=== PATIENT | female | born 1955 | race Caucasian/White ===

== ENCOUNTER → 2018-01-01 | Outpatient (CLI) | payer OTHER ==
[2016-11-09 15:25] VITALS: BP 150/84
[~2018-01-01] MED LIST: ALBU18HF IH; ASPI-612 PO; ATOR20TA58 PO; AZIT250T6 PO; DULO60CA6 PO; FLUO20TA11 PO; FLUT1DIS IH; GUAI600T47 PO; HYDR-971 PO; LEVO750T31 PO; LEVO750T5 PO; MELA3TAB2 PO; OLME20TA17 PO; ONDA4TAB10 PO; PRED-220 PO; PRED50TA PO; TICA90TA PO
--- NOTE | 2018-01-01 17:04 | RAD ---
KUB, 01/01/2018: History: Cough, pain and swelling The abdominal gas pattern is unremarkable. There is no evidence of organomegaly. Scattered arterial calcifications are present. There are mild degenerative changes in the spine. IMPRESSION: 1. No acute abdominal abnormality is detected. 2. If abdominal wall pathology is clinically suspected, CT scanning may be considered for further evaluation.
== END | disposition home or self-care (01) ==
LOC: RAD 16:39
PROVIDERS: ATTEND General Practice
DX: R19.00 Intra-abdominal and pelvic swelling, mass and lump, unspecified site (principal); I11.9 Hypertensive heart disease without heart failure; E78.00 Pure hypercholesterolemia, unspecified; J44.9 Chronic obstructive pulmonary disease, unspecified
CPT/HCPCS: 74018

== ENCOUNTER → 2018-01-02 | Outpatient (CLI) | payer OTHER ==
[2016-11-09 15:25] VITALS: BP 150/84
[2018-01-02 12:37] LABS: BASO # 0.1 x10^3/uL (0.0-0.2); BASO % 1 % (0-3); EOS # 0.4 x10^3/uL (0.0-0.7); EOS % 5 % (0-3); HEMATOCRIT 43.2 % (36.0-47.0); HEMOGLOBIN 14.4 g/dL (12.0-15.5); LYMPH # 2.5 x10^3/uL (1.0-4.8); LYMPH % 29 % (24-48); MEAN CORPUSCULAR HEMOGLOBIN 32 pg (25-35); MEAN CORPUSCULAR HGB CONC 33 g/dL (31-37); MEAN CORPUSCULAR VOLUME 94 fL (79-100); MONO # 0.7 x10^3/uL (0.0-1.1); MONO % 8 % (0-9); NEUT % 57 % (31-73); PLATELET COUNT 259 x10^3/uL (140-400); RED BLOOD COUNT 4.57 x10^6/uL (3.50-5.40); RED CELL DISTRIBUTION WIDTH 13.2 % (11.5-14.5); WHITE BLOOD COUNT 8.7 x10^3/uL (4.0-11.0)
[2018-01-02 12:53] LABS: ALBUMIN 3.3 g/dL (3.4-5.0); ALBUMIN/GLOBULIN RATIO 0.8 (1.0-1.7); CALCIUM 8.5 mg/dL (8.5-10.1); CREATININE 0.6 mg/dL (0.6-1.0); POTASSIUM 3.7 mmol/L (3.5-5.1); TOTAL BILIRUBIN 0.7 mg/dL (0.2-1.0); TOTAL PROTEIN 7.2 g/dL (6.4-8.2)
== END | disposition home or self-care (01) ==
LOC: LAB 11:41
PROVIDERS: ATTEND General Practice
DX: R05 Cough (principal); R23.3 Spontaneous ecchymoses
CPT/HCPCS: 36415; 80053; 85025; 85610; 85730

== ENCOUNTER → 2018-04-16 | Outpatient (CLI) | payer OTHER ==
[2016-11-09 15:25] VITALS: BP 150/84
--- NOTE | 2018-04-16 13:41 | RAD ---
History: Intermittent distal lateral left lower leg mass. Symptoms for about 1.5 months. Comparison: None. Findings: Soft tissue ultrasound imaging was performed of the lateral left lower leg in area of interest. No solid or cystic masses are identified. Normal structures are visualized. Impression: No abnormality identified in the left lower leg in area of interest. Electronically signed by: Felix Saez MD (04/16/2018 1:37 PM) [facility]
== END | disposition home or self-care (01) ==
LOC: US 12:45
PROVIDERS: ATTEND General Practice
DX: R22.42 Localized swelling, mass and lump, left lower limb (principal); I11.9 Hypertensive heart disease without heart failure; E78.5 Hyperlipidemia, unspecified; J44.9 Chronic obstructive pulmonary disease, unspecified; E87.1 Hypo-osmolality and hyponatremia; I25.10 Atherosclerotic heart disease of native coronary artery without angina pectoris; Z95.818 Presence of other cardiac implants and grafts; Z68.23 Body mass index [BMI] 23.0-23.9, adult
CPT/HCPCS: 76881

== ENCOUNTER → 2018-11-27 | Outpatient (CLI) | payer OTHER ==
[2016-11-09 15:25] VITALS: BP 150/84
[~2018-11-27] MED LIST changes: -ALBU18HF IH; +ALBU2.5V8 IH; +HYDR-3165 PO; -HYDR-971 PO; +REGADENOSON 0.4 MG/5 ML DISP.SYRIN. IV ONE
--- NOTE | 2018-11-27 11:30 | RAD ---
MR#: [id number] Date of Study: 11/27/2018 Ordering Physician: NORA SIN, Referring Physician: TANNA HYDE Tech: MUSHTAQ Ramirez ARRT (R) (N) APPROVED REPORT Test Type: Pharmacological Stress Nurse/Tech: RAINE Yen Test Indications: cp, CAD Cardiac History: Hypertension, High cholesterol Medications: See Electronic Medical Record Medical History: See Electronic Medical Record Resting ECG: SR Resting Heart Rate: 77 bpm Resting Blood Pressure: 151/89mmHg Pretest Chest Pain: None Nurse/Tech Notes SR, NO ACUTE ABN. Consent: The procedure was explained to the patient in lay terms. Informed consent was witnessed. Randall eout was entered into [employer]. History and Stress Test performed by MUSHTAQ Ramirez ARRT (R) (N) Pharm. Details Pharmacologic stress testing was performed using 0.4mg per 5ml of regadenoson given intravenously ove r 7-10 seconds. Stress Symptoms No chest pain or symptoms. POST EXERCISE Reason for Termination: Infusion complete Target HR: No Max HR: 108 bpm 80% of Maximum Predicted HR: 135 bpm Exercise duration: 6 min:sec, Stage Max Blood Pressure: 149/98mmHg Blood Pressure response to exercise: Normal blood pressure response during stress. Chest Pain: No. Arrhythmia: No. ST Change: No. INTERPRETATION Stress EKG Conclusion: NO ACUTE ABNORMALITIES, NO CP Imaging Protocol IMAGE PROTOCOL: Rest Tc-99m/stress Tc-99m 1 day Rest: Stress: Viability: Radiopharm.Tc99m IohaqimibPx57v Sestamibi Tmsa74rEo 30mCi Img Date 11/27/2018 11/27/2018 Inj-Img [id number]. 45min. Rest Admin Site:IV - Right AntecubitalAdministrator: MUSHTAQ Ramirez ARRT (R)(N) Stress Admin Site: IV - Right AntecubitalAdministrator: MUSHTAQ Ramirez ARRT (R)(N) STRESS DATA End Diast. Vol.66.0mlAv. Heart Rate91.0bpm LVEDV index BSA1.0mlCardiac Output0.1L/min End Syst. Vol.9.0mlCO Index BSA5.2L/min LVESV index BSA0.0mlMyocardial Phwx485.0g Eject. Dtosrnga09.0% Stress Rates Pk. Fill Rate4.93EDV/secLVtime Pk. Fill 177.05msec Pk. Empty Rate5.70ESV/secLVtime Pk. Lnkpb070.21msec 1/3 Pk. Fill1.50EDV/sec Stress Scores Regional WT2.00Summed WT6.00 Regional WM0.00Summed WM0.00 The rest and stress images show normal perfusion, normal contraction and thickening. LV Perf. Quant 17 Seg. SSS0.00 17 Seg. SRS4.00 17 Seg. SDS0.00 Stress Defect Extent (% LAD)0.00Rest Defect Extent (% LAD)0.00Rev. Defect Extent (% LAD)0.00 Stress Defect Extent (% LCX) 0.00Rest Defect Extent (% LCX)17.50Rev. Defect Extent (% LCX)0.00 Stress Defect Extent (% RCA)0.00Rest Defect Extent (% RCA)8.90Rev. Defect Extent (% RCA)0.00 Stress Defect Extent (% PURA)0.00Rest Defect Extent (% PURA)7.60Rev. Defect Extent (% PURA)0.00 Other Information Quality:Average Risk Assessment: Low Risk Conclusion 1. No evidence of stress induced EKG changes. 2. Normal perfusion at stress/rest. 3. Subdiphragmatic attenuation noted. 4. Normal EF at > 70% 5. Low risk study Signed by : Ross aLmar, Electronically Approved : 11/27/2018 11:29:53
== END | disposition home or self-care (01) ==
LOC: NM 07:55
PROVIDERS: ATTEND Internal Medicine Cardiovascular Disease
DX: I25.10 Atherosclerotic heart disease of native coronary artery without angina pectoris (principal); I10 Essential (primary) hypertension; E78.00 Pure hypercholesterolemia, unspecified
CPT/HCPCS: 78452; 93017; 96374; 96375; 96376; A9500; J2785

== ENCOUNTER → 2020-01-22 | Outpatient (CLI) | payer MEDICAID ==
[2016-11-09 15:25] VITALS: BP 150/84
[~2020-01-22] MED LIST changes: -MELA3TAB2 PO; +MELA3TAB4 PO; -REGADENOSON 0.4 MG/5 ML DISP.SYRIN. IV ONE
--- NOTE | 2020-01-22 14:39 | RAD ---
PROCEDURE: RIBS RIGHT AND PA CHEST STUDY DATE: Right rib pain after coughing CLINICAL INDICATION / HISTORY: Right rib pain after coughing. TECHNIQUE: PA chest and 3 views right ribs COMPARISON: Portable chest of 09/12/2016 FINDINGS: Cardiac mediastinal contours are unremarkable. No hilar or mediastinal adenopathy is apparent. The lungs are clear. No pneumothorax or pleural effusion. No acute or aggressive osseous lesions. No rib fractures are seen.. IMPRESSION: No acute abnormality in the chest or right ribs. Electronically signed by: Raman Zavaleta MD (01/22/2020 2:36 PM) [id number]
== END | disposition home or self-care (01) ==
LOC: DXRAD 14:09
PROVIDERS: ATTEND Family Medicine
DX: R07.81 Pleurodynia (principal)
CPT/HCPCS: 71101

== ENCOUNTER → 2020-04-22 | Outpatient (CLI) | payer MEDICAID ==
[2016-11-09 15:25] VITALS: BP 150/84
[~2020-04-22] MED LIST changes: -ASPI-612 PO; +ASPI-889 PO
--- NOTE | 2020-04-22 18:25 | RAD ---
DATE: 04/22/2020 11:20 AM EXAM: DIGITAL SCREEN BILAT W/CAD HISTORY: Screening COMPARISON: 08/11/2015 Bilateral full field craniocaudal and mediolateral oblique images were obtained using digital technique. This study was interpreted with the benefit of Computerized Aided Detection (CAD). FINDINGS: Breast Density: DENSE The breast Parenchyma is dense, which could reduce the sensitivity of mammography. Breast parenchyma level density D. Asymmetry in the medial middle third right breast with associated calcifications and subtle architectural distortion best appreciated in the CC projection needs additional imaging with spot magnification views in the CC projection and ideally, with full field 3-D imaging in the CC and MLO projections. Targeted ultrasound of the medial right breast may also be helpful after initial diagnostic mammographic workup. The left mammogram is negative. IMPRESSION: Right breast asymmetry, findings for which additional imaging is advised. BI-RADS CATEGORY: 0 INCOMPLETE: NEEDS ADDITIONAL IMAGING EVALUATION AND/OR PRIOR MAMMOGRAMS FOR COMPARISON. RECOMMENDED FOLLOW-UP: ADD ADDITIONAL IMAGING The patient will be contacted to return for additional imaging and a supplemental report will follow. PQRS compliance statement: Patient information was entered into a reminder system with a target due date for the next mammogram. Mammography is a sensitive method for finding small breast cancers, but it does not detect them all and is not a substitute for careful clinical examination. A negative mammogram does not negate a clinically suspicious finding and should not result in delay in biopsying a clinically suspicious abnormality. "Our facility is accredited by the [employer] Mammography Program."
== END | disposition home or self-care (01) ==
LOC: MAMMO 11:10
PROVIDERS: ATTEND Family Medicine
DX: Z12.31 Encounter for screening mammogram for malignant neoplasm of breast (principal)
CPT/HCPCS: 77067

== ENCOUNTER → 2020-05-25 | Outpatient (CLI) | payer MEDICAID ==
[2016-11-09 15:25] VITALS: BP 150/84
--- NOTE | 2020-05-25 17:05 | RAD ---
DATE: 05/25/2020 1:08 PM EXAM: MAMMO ERIKA DIAG RT, BREAST RIGHT HISTORY: 64-year-old woman recalled from screening for medial right breast asymmetry with calcifications and distortion COMPARISON: 04/22/2020 bilateral mammogram TECHNIQUE: 3D imaging of the right breast in the CC and MLO projections was performed in addition to spot compression right cc and full-field right MLO views. This study was interpreted with the benefit of Computerized Aided Detection (CAD). FINDINGS: Breast Density: HETERO The breast parenchyma Is heterogeneously dense, which could reduce sensitivity of mammography. Breast parenchyma level C The additional views of the medial right breast confirm the presence of a faint cluster of microcalcifications in the medial right breast associated with architectural distortion. These are better seen on the current MLO tomographic series 5 cm from the nipple and are in the upper inner quadrant, MLO tomographic image 31 of 43 ( and CC tomographic image 17 of 38 this exam) . Targeted ultrasound of the upper inner right breast identifies an irregular hypoechoic antiparallel shadowing mass measuring 6 mm in the antiradial orientation at the 1:00 position 3 cm from the nipple (image 8 on ultrasound series 1). This is suspicious and recommended for biopsy with ultrasound guidance. Review of the right cc tomographic images also revealed a lateral right breast oval asymmetry 14 mm in diameter, potentially representing artifact of overlapping fibroglandular tissue but in need of additional imaging with spot compression view and targeted ultrasound. Given the heterogeneously dense breast parenchyma, the spot compression view did not reveal an additional mammographic abnormality but targeted ultrasound of the upper-outer quadrant right breast (at the approximate level as the recalled asymmetry with distortion in the medial right breast) revealed subtle irregular hypoechoic tissue in the right breast at the 10:00 position 4 cm from the nipple (image 16 of ultrasound series 1) that is also suspicious. IMPRESSION: Suspicious masses in the upper inner and upper outer right breast, both recommended for ultrasound-guided core needle biopsy BI-RADS CATEGORY: 4 SUSPICIOUS ABNORMALITY- BIOPSY SHOULD BE CONSIDERED RECOMMENDED FOLLOW-UP: BIO BIOPSY RECOMMENDEDUltrasound-guided core needle biopsy of the 6mm sonographic right breast mass at the 1:00 position 3 cm from the nipple and the less well-defined right breast 10:00 mass 4 cm from the nipple measuring at least 4 mm is recommended. Our technologist will assist with communicating findings and recommendations to the patient. I also telephoned these results and recommendations to Dr. Joel Guallpa's office where Romina took them on his behalf at 4:49 PM 05/25/2020. PQRS compliance statement: Patient information was entered into a reminder system with a target due date for the next mammogram. Mammography is a sensitive method for finding small breast cancers, but it does not detect them all and is not a substitute for careful clinical examination. A negative mammogram does not negate a clinically suspicious finding and should not result in delay in biopsying a clinically suspicious abnormality. "Our facility is accredited by the [employer] Mammography Program."
== END | disposition home or self-care (01) ==
LOC: MAMMO 12:59
PROVIDERS: ATTEND Family Medicine
DX: R92.2 Inconclusive mammogram (principal)
CPT/HCPCS: 76641; 77065; G0279; 77061

== ENCOUNTER → 2020-07-08 | Outpatient (CLI) | payer MEDICAID ==
[2016-11-09 15:25] VITALS: BP 150/84
== END ==
LOC: LAB 16:04
PROVIDERS: ATTEND Nurse Anesthetist, Certified Registered
DX: Z01.812 Encounter for preprocedural laboratory examination (principal); Z90.10 Acquired absence of unspecified breast and nipple
CPT/HCPCS: U0003

== ENCOUNTER → 2020-07-12 | Day surgery (SDC) | payer MEDICAID ==
[~2020-07-12] MED LIST changes: +BUPIVACAINE-EPI 0.25%-1:200000 MPF 30 ML VIAL. INJ ONE; +BUPIVACAINE-EPI 0.25%-1:200000 MPF 30 ML VIAL. ONE; +IV RINGERS SOLUTION,LACTATED 1,000 ML IV SCH; +KETOROLAC 30 MG/ML VIAL. ONE; +LIDOCAINE 2% PF 5 ML VIAL. ONE; +MIDAZOLAM HCL PF 2 MG/2 ML VIAL. IV ONE; +MIDAZOLAM HCL PF 2 MG/2 ML VIAL. ONE; +ONDANSETRON PF 4 MG/2 ML VIAL. IV PRN; +ONDANSETRON PF 4 MG/2 ML VIAL. ONE; +PHENYLEPHRINE 10 MG/ML VIAL. IV ONE; +PROPOFOL 10,000 MCG/ML (20ML) VIAL IV ONE; +SEVOFLURANE 61 TO 120 MINUTES. IH ONE; +ceFAZolin SODIUM 1 GM VIAL ONE
[2020-07-12] MEDS: IPRATRPIUM/ALBUTEROL 0.5/2.5MG 3 ML NEBU. NEB PRN ×2 (11:22→11:25)
--- NOTE | 2020-07-12 12:18 | PDOC4 ---
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 Procedure of lumpectomy right breast was explained to the patient detail risk benefits were also discussed including bleeding infection alternatives to this procedure also discussed with the patient who seemed to understand and gave both verbal and written consent to have the procedure performed. Patient was taken to the operating room placed in the supine positio n general anesthesia was initiated once patient was sleeping intubated her right chest and breast were prepped and draped usual sterile fashion using ChloraPrep. An elliptical incision between the 2 stereotactic biopsy sites was made through the skin with 15 blade scalpel this carried down through the subcutaneous tissue using electrocautery right hemostasis the breast tissue was excised using electrocautery and marked with silk suture with a long suture being lateral the short suture being medial and the double suture being the inferior border. Of note the depth of the tissue was taken down to the pectoralis muscle. Wound was injected with quarter percent Marcaine with epinephrine wound was then closed in 2 layers the deep layer running 3-0 Vicryl and the skin was reapproximated for subcuticular Monocryl Mastisol Steri-Strips and island dressings were applied. Patient was awakened and extubated in the operating room taken to recovery in stable condition all sponge instrument needle counts listed as correct estimated blood loss 5 mL Surgeon Jonnathan ANESTHESIA PROPOSED: GENERAL, LOCAL Blood Loss 5 mL Specimen Right breast tissue marked as short stitch medial long stitch lateral double stitch inferior Complications None TONIE GARCIA MD Jul 12, 2020 12:18
--- NOTE | 2020-07-12 12:20 | DISCH ---
DISCHARGE INSTRUCTIONS-DC Condition on Discharge Condition on Discharge: Stable Activity after Discharge Activity Instructions for Disc: Avoid exertion Diet after Discharge Diet after Discharge: Regular Wound/Incision Care Wound/Incision Care: Ice to area for comfort Other wound/incision instructi: May shower in 24 hours Contacting the after DC Call your doctor for: If your condition worsens Follow-Up Follow up with: Dr. Garcia in 2 weeks TONIE GARCIA MD Jul 12, 2020 12:20
[2020-07-12 13:22] VITALS: BP 148/91
--- NOTE | 2020-07-22 22:08 | PATHOLOGY ---
[facility] Accession Number: [id number] . 01 Material submitted: . breast - RIGHT BREAST LUMPECTOMY. Modifiers: right . 01 Clinical history: . RIGHT BREAST LUMP . 02 Diagnosis: "R breast lumpectomy", lumpectomy: - MINUTE FOCUS OF INVASIVE DUCTAL CARCINOMA WITH LOBULAR FEATURES, MEASURING 0.3 CM ON THE SLIDE; MARGINS FREE OF INVASIVE CARCINOMA, ALL MARGINS GREATER THAN 1.0 CM AWAY. - DUCTAL CARCINOMA IN SITU, SOLID AND CRIBRIFORM SUBTYPES, INTERMEDIATE NUCLEAR GRADE (GRADE II), WITH LOBULAR EXTENSION; MARGINS FREE OF IN SITU CARCINOMA/DCIS, ALL MARGINS GREATER THAN 0.5 CM AWAY. - Background breast tissue with fibrocystic changes including stromal fibrosis, small cyst formation, extensive adenosis, radial scar formation, columnar cell hyperplasia and previous biopsy site changes with microcalcifications present. - Skin and subcutaneous tissue with minimal histologic alterations. (CLW:stanley/retail interior designer; 07/15/2020) . . Surgical Pathology Cancer Case Summary Protocol posting date: October 2019 . INVASIVE CARCINOMA OF THE BREAST: Resection . Procedure ___ Excision (less than total mastectomy) . Specimen Laterality ___ Right . Tumor Size ___ Greatest dimension of largest invasive focus >1 mm: 3 mm . Histologic Type ___ Invasive carcinoma with mixed ductal and lobular features . Histologic Grade Glandular (Acinar)/Tubular Differentiation ___ Score 3 (<10% of tumor area forming glandular/tubular structures) . Nuclear Pleomorphism ___ Score 2 (cells larger than normal with open vesicular nuclei, visible nucleoli, and moderate variability in both size and shape) . Mitotic Rate ___ Score 1 . Overall Grade ___ Grade 2 (scores of 6 or 7) . Ductal Carcinoma In Situ ___ Present + ___ Positive for extensive intraductal component (EIC) . Tumor Extension Skin ___ Skin is present and uninvolved . Margins Invasive Carcinoma Margins ___ Uninvolved by invasive carcinoma Distance from closest margin: ___ Greater than 10 mm . DCIS Margins ___ Uninvolved by DCIS Distance from closest margin: ___ Greater than 5 mm . Regional Lymph Nodes ___ No lymph nodes submitted or found . Treatment Effect in the Breast ___ No known presurgical therapy . Pathologic Stage Classification (pTNM, AJCC 8th Edition) Primary Tumor (pT) ___ pT1a:Tumor >1 mm but =5 mm in greatest dimension (round any measurement >1.0-1.9 mm to 2 mm) . Regional Lymph Nodes (pN) ___ pNX:Regional lymph nodes cannot be assessed (eg, not removed for pathological study or previously removed) S 07/22/20202 Local . 02 Comment: The patient has a history of "ductal carcinoma in situ (DCIS), solid and cribriform types, nuclear grade II (intermediate), with extension into lobules and focally involving areas of sclerosing adenosis" from a previous right breast mass 1:00 3 cmfn needle biopsy ([id number]). . Properly controlled immunohistochemical stains are performed. . Block A4: AE1/AE3 - focus of invasive tumor reactive; Smooth muscle myosin - focus of invasive tumor without myoepithelial cells; P63 - focus of invasive tumor without myoepithelial cells; Calponin - focus of invasive tumor without myoepithelial cells. . Block A8: Smooth muscle myosin - intact myoepithelial cells; P63 - intact myoepithelial cells. . Works Manager slides are co-reviewed with Dr. Gerald Mcdaniel and Dr. Sera Aly. Clinical correlation is recommended. The case is discussed with Dr. Ghassan De Santiago's office on 07/21/20 in the morning. . (CLW:stanley/serenity; 07/15/2020) . 02 Electronically signed: . Nurys Salazar MD, Pathologist NPI- [id number] . 01 Gross description: . The specimen is received in formalin, labeled "Selene Byrlazarus, R breast lumpectomy, long lateral, double inferior, short medial". Received is a 55 g lumpectomy specimen measuring 8.2 cm from medial to lateral, by 5.7 cm from superior to inferior, and 1.9 cm from anterior to posterior. On the anterior aspect of the specimen, there is an ellipse of pale mulligan skin measuring 4.1 x 0.8 cm. The specimen is inked as follows: Superior-blue, inferior-green, lateral-red, medial-yellow, anterior-black, posterior-orange. The specimen is sectioned from lateral to medial aspects into 19 slices to reveal a hemorrhagic previous biopsy site, with the metallic coil present, measuring 0.6 x 0.5 x 0.5 cm, which is located in slices 7 and 8. This site is 0.9 cm from the anterior margin, 1.1 cm from the posterior margin, 3.7 cm from the superior margin, 1.5 cm from the inferior margin, 2.7 cm from the lateral margin, and 4.9 cm from the medial margin. Surrounding the previous biopsy site is a poorly circumscribed pale mulligan possible mass measuring 2.0 x 1.0 x 0.7 cm, which is located in slices 7 through 9. This possible mass grossly abuts the inferior margin, is 3.5 cm from the superior margin, 0.2 cm from the anterior margin, 0.2 cm from the posterior margin, 2.6 cm from the lateral margin, and 4.1 cm from the medial margin. The remainder of the specimen is comprised of bright yellow, lobulated to white, fibrous tissue. No additional nodules or lesions are noted grossly. The specimen is submitted representatively as follows: . A1 most lateral margin, serially sectioned A2 most medial margin, serially sectioned A3-A8 entire previous biopsy site and possible mass submitted from lateral to medial aspects A9 customer service representative teller section of skin. . The cold ischemic time is less than 1 minute. The total formalin fixation time is 35 hours and 30 minutes. (CAA; 07/13/2020) QAC/QAC 07/13/2020 1827 Local . 02 Pathologist provided ICD-10: C50.911, D05.11, N60.11, N60.31, N30.21, N62 . 02 CPT . 475407, P00573, P64436 Specimen Comment: A courtesy copy of this report has been sent to [phone] Specimen Comment: Report sent to DR AKBAR Performed at: [address] [place] [address] [address], [place], [place] [id number] MD Senthil Villagomez MD Phone: [phone] Performed at: [address] [id number] MD Tori García MD Phone: [phone]
== END | disposition home or self-care (01) ==
LOC: SURG 10:08
PROVIDERS: ATTEND Surgery
DX: D05.11 Intraductal carcinoma in situ of right breast (principal); I25.2 Old myocardial infarction; I11.0 Hypertensive heart disease with heart failure; I50.9 Heart failure, unspecified; F12.10 Cannabis abuse, uncomplicated; F10.20 Alcohol dependence, uncomplicated; F32.9 Major depressive disorder, single episode, unspecified; E78.5 Hyperlipidemia, unspecified; J43.9 Emphysema, unspecified; I25.119 Atherosclerotic heart disease of native coronary artery with unspecified angina pectoris; Z90.10 Acquired absence of unspecified breast and nipple; Z79.899 Other long term (current) drug therapy; Z79.82 Long term (current) use of aspirin; Z95.818 Presence of other cardiac implants and grafts; Z87.01 Personal history of pneumonia (recurrent); Z80.1 Family history of malignant neoplasm of trachea, bronchus and lung; Z82.5 Family history of asthma and other chronic lower respiratory diseases; Z68.24 Body mass index [BMI] 24.0-24.9, adult; Z82.49 Family history of ischemic heart disease and other diseases of the circulatory system
CPT/HCPCS: 19301; J0690; J1885; J2001; J2250; J2405; J2704; J3010; J3490; J7120

== ENCOUNTER 2020-08-02 13:56 | Emergency (ER) | payer MEDICAID ==
[~2020-08-02] VITALS: Ht 165.1 cm; Wt 67.7 kg
[~2020-08-02 13:56] MED LIST changes: -BUPIVACAINE-EPI 0.25%-1:200000 MPF 30 ML VIAL. INJ ONE; -BUPIVACAINE-EPI 0.25%-1:200000 MPF 30 ML VIAL. ONE; -IV RINGERS SOLUTION,LACTATED 1,000 ML IV SCH; -KETOROLAC 30 MG/ML VIAL. ONE; -LIDOCAINE 2% PF 5 ML VIAL. ONE; -MIDAZOLAM HCL PF 2 MG/2 ML VIAL. IV ONE; -MIDAZOLAM HCL PF 2 MG/2 ML VIAL. ONE; -ONDANSETRON PF 4 MG/2 ML VIAL. IV PRN; -ONDANSETRON PF 4 MG/2 ML VIAL. ONE; -PHENYLEPHRINE 10 MG/ML VIAL. IV ONE; -PROPOFOL 10,000 MCG/ML (20ML) VIAL IV ONE; -SEVOFLURANE 61 TO 120 MINUTES. IH ONE; -ceFAZolin SODIUM 1 GM VIAL ONE
[2020-08-02 14:13] VITALS: BP 114/118
--- NOTE | 2020-08-02 14:30 | PHYS DOC ---
Past History Past Medical History: COPD, Depression, High Cholesterol, Hypertension, Pneumonia, Other Past Surgical History: Other Alcohol Use: Occasionally Drug Use: Marijuana General Adult EDM: Chief Complaint: POST-OP PROBLEM HPI: HPI: Patient is a 65 year old female who presents with 1 cm draining induration wound with surrounding healing ecchymosis. Wound has clots with expression. Patient had lumpectomy on 07/12 with f/u on with no complications. Review of Systems: Review of Systems: Constitutional: Denies fever or chills Eyes: Denies redness or eye pain HENT: Denies nasal congestion or sore throat Respiratory: Denies cough or shortness of breath Cardiovascular: Denies chest pain or palpitations GI: Denies abdominal pain, nausea, or vomiting : Denies dysuria or hematuria Musculoskeletal: Denies back pain or joint pain Integument: Denies rash. Reports post-op bruising and draining wound. Neurologic: Denies headache, focal weakness or sensory changes Complete systems were reviewed and found to be within normal limits, except as documented in this note. Allergies: Allergies: Allergies Coded Allergies Type Severity Reaction Last Updated Verified No Known Drug Allergies 07/12/20 No Physical Exam: PE: Constitutional: Well developed, well nourished, no acute distress, non-toxic appearance HENT: Normocephalic, atraumatic Eyes: Conjunctiva normal, no discharge Neck: Normal range of motion, no tenderness, supple Lungs & Thorax: No respiratory distress, equal chest rise and fall Abdomen: Soft, no tenderness Skin: Warm, dry, no erythema. Indurated draining 1 cm wound on right breast with surrounding healing ecchymosis. Wound has clots with expression. Back: No tenderness, no CVA tenderness Extremities: No tenderness, ROM intact, no edema Neurologic: Alert and oriented X 3, normal motor function, normal sensory function, no focal deficits noted Psychologic: Affect normal, judgment normal Current Patient Data: Vital Signs: Vital Signs Date Time Temp Pulse Resp B/P (MAP) Pulse Ox O2 Delivery O2 Flow Rate FiO2 08/02/20 14:13 97.9 102 26 114/118 (117) 92 Course & Med Decision Making: Course & Med Decision Making Patient is a 65 year old female who presents with 1 cm draining induration wound with surrounding healing ecchymosis. Wound has clots with expression. Patient had lumpectomy on 07/12 with f/u on with no complications. Wound dressed and patient given meds for pain symptoms. Patient instructed on local wound care at home. Patient should make appointment to follow up with Dr. Garcia. Patient stable for discharge with outpatient follow-up with PCP/Dr. Garcia. Discussed findings and plan with patient, who acknowledges understanding and agreement. Angelinaon Disclaimer: Dragon Disclaimer: This electronic medical record was generated, in whole or in part, using a voice recognition dictation system. Departure Departure: Impression: Primary Impression: Hematoma of right breast Additional Impression: Encounter for evaluation of wound Disposition: DC HOME SELF CARE/HOMELESS Condition: STABLE Referrals: HERBIE AKBAR MD (PCP) TONIE GARCIA MD Patient Instructions: Hematoma, Vjju-[id number], Wound Care, [id number]-[id number] Additional Instructions: Do not soak your wound. You may shower. Clean wound daily with soap and water. Change dressing 2 times daily. Use over the counter antibiotic ointment with each dressing change. Scripts Hydrocodone Bit/Acetaminophen (NORCO 5-325 TABLET) 1 Each Tablet 0.5-1 TAB PO Q6HRS for PAIN, #8 TAB Prov: LITO PAUL DO 08/02/20 LITO PAUL DO Aug 02, 2020 14:30
[2020-08-02] MEDS ORDERED: HYDR-3165 PO (14:40)
[2020-08-02] MEDS ORDERED: NEOMY/BACITR/POLYMYXIN OINT PACKET. TP ONE (14:45)
[2020-08-02] MEDS ORDERED: HYDROcodone/APAP 5/325MG 1 TAB TABLET PO ONE (14:45)
== END 2020-08-02 14:44 | disposition home or self-care (01) ==
LOC: ER 13:56
DX: N64.89 Other specified disorders of breast (principal); N64.51 Induration of breast; J44.9 Chronic obstructive pulmonary disease, unspecified; E78.00 Pure hypercholesterolemia, unspecified; I10 Essential (primary) hypertension; Z98.890 Other specified postprocedural states
CPT/HCPCS: 99283

== ENCOUNTER → 2020-09-24 | Outpatient (CLI) | payer MEDICAID ==
--- NOTE | 2020-09-24 12:31 | RAD ---
EXAM: XR CHEST 2V INDICATION: Reason: COPD, BREAST CA 07/29 RIGHT LUMPECTOMY, STARTING RADIATION / Spl. Instructions: / History: . TECHNIQUE: Single view COMPARISON: 01/22/2020 chest x-ray FINDINGS: The heart size is normal. The great vessels appear unremarkable. There is no hilar or mediastinal mass. The lungs are mildly hyperinflated but clear. There is no pleural effusion or pneumothorax. There are no significant osseous abnormalities. IMPRESSION: No active cardiopulmonary disease. Electronically signed by: Raman Zavaleta MD (09/24/2020 12:29 PM) [facility]
== END ==
LOC: DXRAD 10:41
PROVIDERS: ATTEND Radiology Radiation Oncology
DX: D05.11 Intraductal carcinoma in situ of right breast (principal)
CPT/HCPCS: 71046

== ENCOUNTER → 2020-10-20 | Outpatient (CLI) | payer MEDICAID ==
--- NOTE | 2020-10-20 16:27 | RAD ---
EXAM: DUAL ENERGY X-RAY ABSORPTIOMETRY (DEXA). HISTORY: Postmenopausal screening. FINDINGS: The lowest measured T-score is -1.6 in the right hip, based on a bone mineral density of 0. 762 g/cm^2. Refer to the worksheets for full detail. No comparison examinations are available. IMPRESSION: 1. Low bone mass. Bone mineral density yields a T-score between -1.0 and -2.5. Fracture risk is incre ased. 2. FRAX report: Not calculated. METHODOLOGY: Dual energy x-ray absorptiometry was performed to measure bone mineral density. The foll owing analysis is based on the 2019 Official Positions of the International Society for Clinical Dens itometry: Measurements of the hips and the average of L1-L4 are preferred. When the spine and/or hip cannot be feasibly measured or interpreted, or in the setting of hyperparathyroidism, distal radial bone minera l density may be measured. The lumbar spine T-score is based on the average bone mineral density of L1-L4. In the setting of art ifact or anatomic abnormality, some lumbar levels may be excluded, and the remaining levels used for calculation. A single lumbar level is not used for diagnosis, and if only a single level is available for assessment, another anatomic site will be used to assign a diagnosis. The hip T-score is based on the bone mineral density measurement of the femoral neck or total proxima l femur of either side, whichever is lowest. Bilateral mean values are not used for diagnosis. The forearm T-score is derived from 33% of the distal radius of the nondominant forearm. Electronically signed by: Marcia Kendrick MD (10/20/2020 4:24 PM) [id number]
== END ==
LOC: DXRAD 13:15
PROVIDERS: ATTEND Internal Medicine Hematology & Oncology
DX: D05.11 Intraductal carcinoma in situ of right breast (principal)
CPT/HCPCS: 77080

== ENCOUNTER → 2021-04-18 | Outpatient (CLI) | payer MEDICAID ==
--- NOTE | 2021-04-18 16:39 | RAD ---
EXAM: BILATERAL DIGITAL 3-D DIAGNOSTIC MAMMOGRAPHY. HISTORY: Personal history of right breast cancer status post breast conservation therapy. Routine rad veillance. TECHNIQUE: Bilateral full field digital images were obtained in CC and MLO projections with tomosynth esis. Computer-aided detection was applied. COMPARISON: 04/22/2020, 08/11/2015. COMPOSITION: D. The breasts are extremely dense, which lowers the sensitivity of mammography. FINDINGS: Post breast conservation therapy changes are noted medially on the right. An obscured mass at the right 1:00 position contains a postbiopsy clip and is likely benign. A coarse calcification on the left is benign. There are no suspicious masses, microcalcifications or architectural distortion. The parenchymal pattern is stable. BI-RADS CATEGORY 2: Benign. RECOMMENDATION: 1. Continue surveillance mammography in one year. If mammography demonstrates dense breast tissue (heterogenously dense or extremely dense, category C or D), which could hide abnormalities, and if other risk factors for breast cancer have been identifi ed, supplemental screening tests that may be suggested by the ordering physician may be of benefit. D ense breast tissue, in and of itself, is a relatively common condition. Therefore, this information i s not provided to cause undue concern, but rather to raise awareness and to promote discussion with t he referring physician regarding the presence of other risk factors, in addition to dense breast tiss ue. The results of this mammography examination is provided to the patient and referring physician. T he patient should contact their referring physician if any questions or concerns exist regarding this report. PQRS compliance statement - Patient information was entered into a reminder system with a target due date for the next mammogram. "Our facility is accredited by the [employer] Mammography Program." Electronically signed by: Shantel Del Castillo MD (04/18/2021 4:36 PM) [email or web address]
== END ==
LOC: MAMMO 13:34
PROVIDERS: ATTEND Family Medicine
DX: D05.11 Intraductal carcinoma in situ of right breast (principal); N63.12 Unspecified lump in the right breast, upper inner quadrant; Z92.3 Personal history of irradiation
CPT/HCPCS: 77066; G0279; 77062

== ENCOUNTER → 2021-05-02 | Outpatient (CLI) | payer MEDICAID ==
[~2021-05-02] MED LIST changes: +REGADENOSON 0.4 MG/5 ML DISP.SYRIN. IV ONE
--- NOTE | 2021-05-03 22:35 | RAD ---
MR#: [id number] Date of Study: 05/02/2021 Ordering Physician: NORA SIN, Referring Physician: TANNA HYDE Tech: RT Barry (R) (N) APPROVED REPORT Test Type: Pharmacological Stress Nurse/Tech: Bhupinder Rowe / Hubert Farley Test Indications: CP / Hx stent Cardiac History: See [employer] EMR NKDA Resting Heart Rate: 73 bpm Resting Blood Pressure: 136/82mmHg Pharm. Details Pharmacologic stress testing was performed using 0.4mg per 5ml of regadenoson given intravenously ove r 7-10 seconds. Stress Symptoms Dyspnea POST EXERCISE Reason for Termination: Infusion complete Max HR: 92 bpm Max Blood Pressure: 123/75mmHg Blood Pressure response to exercise: Normal blood pressure response during stress. Chest Pain: No. Arrhythmia: No. ST Change: No. INTERPRETATION Stress EKG Conclusion: No evidence of stress induced EKG changes. Imaging Protocol IMAGE PROTOCOL: Rest Tc-99m/stress Tc-99m 1 day Rest: Stress: Viability: Radiopharm.Tc99m LmdoqtguaPc17r Sestamibi Iqoc5gWd 33mCi Duration 15min. 15min. Img Date 05/02/2021 05/02/2021 Inj-Img Onlg79xsy. 60min. Rest Admin Site:IV - Right AntecubitalAdministrator: RT Barry (R)(N) Stress Admin Site: IV - Right AntecubitalAdministrator: RT Barry (R)(N) STRESS DATA End Diast. Vol.49.0mlAv. Heart Rate78.0bpm End Syst. Vol.12.0mlCO Index BSA0.0L/min Myocardial Mass91.0gEject. Ehpdtngo48.0% Stress Rates Pk. Fill Rate3.71EDV/secLVtime Pk. Fill 189.80msec Pk. Empty Rate4.84ESV/secLVtime Pk. Cjyxa682.03msec / Pk. Fill1.52EDV/sec Stress Scores Regional WT3.00Summed WT13.00 Regional WM0.00Summed WM6.00 The rest and stress images show normal perfusion, normal contraction and thickening. LV Perf. Quant 17 Seg. SSS1.00 17 Seg. SRS4.00 17 Seg. SDS0.00 Stress Defect Extent (% LAD)0.00Rest Defect Extent (% LAD)0.00Rev. Defect Extent (% LAD)0.00 Stress Defect Extent (% LCX) 5.00Rest Defect Extent (% LCX)18.80Rev. Defect Extent (% LCX)0.00 Stress Defect Extent (% RCA)0.00Rest Defect Extent (% RCA)0.00Rev. Defect Extent (% RCA)0.00 Stress Defect Extent (% PURA)0.90Rest Defect Extent (% PURA)3.30Rev. Defect Extent (% PURA)0.00 Other Information Quality:Average Risk Assessment: Low Risk Conclusion 1. No evidence of EKG changes with stress testing. 2. Normal perfusion at stress/rest. 3. Low risk study. 4. EF > 60%. Signed by : Ross Lamar, Electronically Approved : 05/03/2021 22:34:20
== END ==
LOC: NM 08:16
PROVIDERS: ATTEND Internal Medicine Cardiovascular Disease
DX: R07.9 Chest pain, unspecified (principal)
CPT/HCPCS: 78452; 93017; A9500; J2785

== ENCOUNTER → 2021-08-24 | Outpatient (CLI) | payer MEDICAID ==
[~2021-08-24] MED LIST changes: -DULO60CA6 PO; +DULO60CA7 PO; -REGADENOSON 0.4 MG/5 ML DISP.SYRIN. IV ONE
--- NOTE | 2021-08-24 16:47 | RAD ---
Chest radiograph 08/24/2021 10:16 AM INDICATION: COPD COMPARISON: 09/24/2020 TECHNIQUE: Frontal and lateral views of the chest are provided. FINDINGS: The cardiomediastinal silhouette is within normal limits. There are no pleural effusions. There is no pulmonary vascular congestion. There is no pneumothorax. The lungs are clear. COPD changes are present. No significant osseous abnormality is identified. IMPRESSION: COPD changes without acute cardiopulmonary process. Electronically signed by: Naomi Palmer MD (08/24/2021 4:44 PM) [id number]
== END ==
LOC: RAD 10:04
PROVIDERS: ATTEND Internal Medicine Pulmonary Disease
DX: J44.9 Chronic obstructive pulmonary disease, unspecified (principal)
CPT/HCPCS: 71046

== ENCOUNTER → 2021-10-27 | Outpatient (CLI) | payer MEDICAID ==
--- NOTE | 2021-10-27 09:52 | RAD ---
EXAM: CT CHEST WITHOUT CONTRAST (LDCT LUNG CANCER SCREENING). HISTORY: Risk factors for pulmonary malignancy. Long-term smoker. Right-sided breast cancer. TECHNIQUE: CT of the chest was performed without intravenous contrast using a low-dose lung screening protocol. Findings analysis is based on ACR Lung-RADS v1.1. *One or more of the following individual ized dose reduction techniques were utilized for this examination: 1. Automated exposure control. 2. Adjustment of the mA and/or kV according to patient size. 3. Use of iterative reconstruction technique. COMPARISON: None. FINDINGS: Thyroid gland is normal in appearance. There are no pathologically enlarged axillary, mediastinal or hilar lymph nodes. Heart size is within normal limits. Thoracic aorta is normal in course and caliber. There is no significant pericardial e ffusion. Thoracic esophagus is normal in appearance. Anterior chest wall appears intact. Three-vessel coronary artery vascular calcifications are present. Calcified atheromatous plaque involving the tho racic aorta. There is a 7 x 5 mm oval nodular opacity in the subpleural right middle lobe along the minor fissure (series 5, image 207). There are no pleural effusions, pulmonary vascular congestion or pneumothorax. Lungs are clear without focal airspace consolidation. Central airways are clear. Visualized portions of the upper abdomen are normal in appearance within limitations of a noncontrast examination. No suspicious osseous abnormality. No paraspinal soft tissue mass. IMPRESSION/RECOMMENDATION: 1. ACR Lung-RADS category: 3, probably benign. 7 x 5 mm oval nodular opacity identified in the subple ural right middle lobe.. 2. 6-month follow-up LDCT. Electronically signed by: Naomi Palmer MD (10/27/2021 9:50 AM) [id number]
== END ==
LOC: CT 08:49
PROVIDERS: ATTEND Internal Medicine Pulmonary Disease
DX: I70.0 Atherosclerosis of aorta (principal); F17.210 Nicotine dependence, cigarettes, uncomplicated; Z12.2 Encounter for screening for malignant neoplasm of respiratory organs; I25.10 Atherosclerotic heart disease of native coronary artery without angina pectoris
CPT/HCPCS: 71271

== ENCOUNTER 2022-02-02 06:28 | Emergency (ER) | payer MEDICAID ==
[~2022-02-02] VITALS: Ht 165.1 cm; Wt 72.7 kg
--- NOTE | 2022-02-02 07:13 | PHYS DOC ---
Past History Past Medical History: COPD, Depression, High Cholesterol, Hypertension, Pneumonia, Other Past Surgical History: Other Additional Past Surgical Histo: R mammectomy Smoking: Cigarettes Alcohol Use: Heavy Drug Use: Marijuana General Adult EDM: Chief Complaint: FACE PROBLEM HPI: HPI: Patient is a 66-year-old female coming in via EMS for left-sided face and upper extremity tingling. Patient states that she woke up a few hours prior and had some symptoms, they were not present when she went to bed at 2300. Patient describes it as a okgi-dqj-xbsrpdu feeling, but can still feel touch. Denies any chest pain. Patient states she sleeps in a recliner and takes a nighttime sleep aid. Patient denies any worsening shortness of breath, chest pain. Patient is states she is slight frontal headache but has a history of headaches. History of cardiac stent and currently taking Plavix. Patient states she took all of her medications this morning. Patient has a history of COPD and is noted increased productive cough Review of Systems: Review of Systems: All other systems within normal limits except for as noted in the HPI Allergies: Allergies: Allergies Coded Allergies Type Severity Reaction Last Updated Verified No Known Drug Allergies 07/12/20 No Physical Exam: PE: Constitutional: Well developed, well nourished, no acute distress, non-toxic appearance. [] HENT: Normocephalic, atraumatic, bilateral external ears normal, nose normal. [] Eyes: PERRLA, conjunctiva normal, no discharge. [] Neck: No rigidity, supple, no stridor. [] Cardiovascular: Regular rate and rhythm, brisk cap refill [] Lungs & Thorax: Non labored symmetric respirations, no tachypnea or respiratory distress [] Abdomen: Soft, nondistended. Skin: Warm, dry, no erythema, no rash. [] Back: Unremarkable Extremities: No deformities, range of motion grossly intact, no lower extremity edema [] Neurologic: Alert and oriented X 3, no focal deficits noted. [] Psychologic: Affect normal, judgement normal, mood normal. [] Current Patient Data: Vital Signs: Vital Signs Date Time Temp Pulse Resp B/P (MAP) Pulse Ox O2 Delivery O2 Flow Rate FiO2 02/02/22 06:39 97.5 94 20 144/90 (108) 91 Room Air EKG: EKG: Sinus rhythm, heart rate 85, no STEMI [] Radiology/Procedures: Radiology/Procedures: [address] [address] IMAGING REPORT Signed PATIENT: REYNA MULLIGAN ACCOUNT: [id number] : 1955 LOCATION: ER AGE: 66 SEX: F EXAM STATUS: REG ER ORD. PHYSICIAN: CARL GOLD MD REASON: paesthesias left, LEFT SIDE WEAKNESS & NUMBNESS, X A FEW HOURS PROCEDURE: CT HEAD WO CONTRAST CT HEAD/BRAIN WO History: Reason: paesthesias left, LEFT SIDE WEAKNESS NUMBNESS, X A FEW HOURS / Spl. Instructions: / History: Comparison: None. Technique: Noncontrast CT imaging was performed of the head. Exposure: One or more of the following individualized dose reduction techniques were utilized for this examination: 1. Automated exposure control 2. Adjustment of the mA and/or kV according to patient size 3. Use of iterative reconstruction technique. Findings: No intracranial hemorrhage. No mass effect. No hydrocephalus. Subtle hypodensity within the right thalamus (series 2 image 15) measures 6 x 4 mm. Imaged orbits are unremarkable. Imaged paranasal sinuses and mastoid air cells are clear. No acute calvarial fracture. Impression: 1. Subtle hypodensity within the right thalamus, may represent age- indeterminate infarct or artifact. Recommend correlation with patient's symptoms and MRI to further assess. Electronically signed by: Prosper Clancy DO (02/02/2022 8:20 AM) [id number] DICTATED AND SIGNED BY: PROSPER CLANCY DO DATE: 02/02/22 0809 CC: CARL GOLD MD; HERBIE AKBAR MD ~ [][address] [address] IMAGING REPORT Signed PATIENT: REYNA MULLIGAN ACCOUNT: [id number] : 1955 LOCATION: ER AGE: 66 SEX: F EXAM STATUS: REG ER ORD. PHYSICIAN: CARL GOLD MD REASON: paesthesias left, LEFT SIDE WEAKNESS & NUMBNESS, X A FEW HOURS PROCEDURE: PORTABLE CHEST 1V XR CHEST 1V History: Reason: paesthesias left, LEFT SIDE WEAKNESS NUMBNESS, X A FEW HOURS / Spl. Instructions: H/O RIGHT SIDE BREAST CANCER / History: Comparison: August 24, 2021 Findings: Mild patchy left basilar opacity. Hyperinflation. No pleural effusion. No pneumothorax. Normal heart size. Prior granulomatous disease within the chest. Impression: 1. Mild patchy left basilar opacity, may represent atelectasis or developing infiltrate. If persistent clinical concern, recommend follow-up. Electronically signed by: Prosper Clancy DO (02/02/2022 8:09 AM) [id number] DICTATED AND SIGNED BY: PROSPER CLANCY DO DATE: 02/02/22807 CC: CARL GOLD MD; HERBIE AKBAR MD ~ Heart Score: C/O Chest Pain: No Risk Factors: Risk Factors: DM, Current or recent (<one month) smoker, HTN, HLP, family history of CAD, obesity. Risk Scores: Score 0 - 3: 2.5% MACE over next 6 weeks - Discharge Home Score 4 - 6: 20.3% MACE over next 6 weeks - Admit for Clinical Observation Score 7 - 10: 72.7% MACE over next 6 weeks - Early Invasive Strategies Course & Med Decision Making: Course & Med Decision Making Pertinent Labs and Imaging studies reviewed. (See chart for details) Patient with subtle findings of possible acute stroke, clinically correlated with recent symptoms. Patient also has left-sided basilar pneumonia. Discussed transfer to [place] for follow-up MRI [] Dragon Disclaimer: Pauly Disclaimer: This electronic medical record was generated, in whole or in part, using a voice recognition dictation system. Departure Departure: Impression: Primary Impression: Pneumonia Additional Impression: CVA (cerebral vascular accident) Disposition: 02 SHORT TERM HOSPITAL Condition: STABLE Referrals: HERBIE AKBAR MD (PCP) CARL GOLD MD February 02, 2022 07:13
[2022-02-02 07:50] LABS: BASO % 1 % (0-3); EOS # 0.2 x10^3/uL (0.0-0.7); EOS % 3 % (0-3); HEMATOCRIT 44.3 % (36.0-47.0); HEMOGLOBIN 14.8 g/dL (12.0-15.5); LYMPH # 1.3 x10^3/uL (1.0-4.8); LYMPH % 20 % (24-48); MEAN CORPUSCULAR HEMOGLOBIN 32 pg (25-35); MEAN CORPUSCULAR HGB CONC 33 g/dL (31-37); MEAN CORPUSCULAR VOLUME 97 fL (79-100); MONO # 0.6 x10^3/uL (0.0-1.1); MONO % 9 % (0-9); NEUT # 4.3 x10^3uL (1.8-7.7); NEUT % 67 % (31-73); PLATELET COUNT 271 x10^3/uL (140-400); RED BLOOD COUNT 4.59 x10^6/uL (3.50-5.40); RED CELL DISTRIBUTION WIDTH 12.9 % (11.5-14.5); WHITE BLOOD COUNT 6.4 x10^3/uL (4.0-11.0)
[2022-02-02 07:58] LABS: CALCIUM 8.9 mg/dL (8.5-10.1); CREATININE 0.5 mg/dL (0.6-1.0); GFR 124.2; POTASSIUM 4.4 mmol/L (3.5-5.1)
[2022-02-02 08:11] LABS: ALBUMIN 3.5 g/dL (3.4-5.0); ALBUMIN/GLOBULIN RATIO 1.1 (1.0-1.7); MAGNESIUM 1.9 mg/dL (1.8-2.4); PHOSPHORUS 4.7 mg/dL (2.6-4.7); TOTAL BILIRUBIN 0.6 mg/dL (0.2-1.0); TOTAL PROTEIN 6.7 g/dL (6.4-8.2)
--- NOTE | 2022-02-02 08:11 | RAD ---
XR CHEST 1V History: Reason: paesthesias left, LEFT SIDE WEAKNESS NUMBNESS, X A FEW HOURS / Spl. Instructions: H/O RIGHT SIDE BREAST CANCER / History: Comparison: August 24, 2021 Findings: Mild patchy left basilar opacity. Hyperinflation. No pleural effusion. No pneumothorax. Normal heart size. Prior granulomatous disease within the chest. Impression: 1. Mild patchy left basilar opacity, may represent atelectasis or developing infiltrate. If persiste nt clinical concern, recommend follow-up. Electronically signed by: Prosper Clancy DO (02/02/2022 8:09 AM) [id number]
--- NOTE | 2022-02-02 08:22 | RAD ---
CT HEAD/BRAIN WO History: Reason: paesthesias left, LEFT SIDE WEAKNESS NUMBNESS, X A FEW HOURS / Spl. Instructions: / History: Comparison: None. Technique: Noncontrast CT imaging was performed of the head. Exposure: One or more of the following individualized dose reduction techniques were utilized for thi s examination: 1. Automated exposure control 2. Adjustment of the mA and/or kV according to patient size 3. Use of iterative reconstruction technique. Findings: No intracranial hemorrhage. No mass effect. No hydrocephalus. Subtle hypodensity within the right thalamus (series 2 image 15) measures 6 x 4 mm. Imaged orbits are unremarkable. Imaged paranasal sinuses and mastoid air cells are clear. No acute ca lvarial fracture. Impression: 1. Subtle hypodensity within the right thalamus, may represent age-indeterminate infarct or artifact . Recommend correlation with patient's symptoms and MRI to further assess. Electronically signed by: Prosper Clancy DO (02/02/2022 8:20 AM) [id number]
[2022-02-02 08:23] LABS: BACTERIA,URINE 0 /HPF (0-FEW); CLARITY,URINE CLEAR; COLOR,URINE YELLOW; GLUCOSE,URINE NEG (NEG); NITRITE,URINE NEG (NEG); RBC,URINE OCC /HPF (0-2); SQUAMOUS EPITHELIAL CELL,UR MOD /LPF; UROBILINOGEN,URINE 0.2 mg/dL (0.2 mg/dL); WBC,URINE 0 /HPF (0-4)
[2022-02-02] MEDS ORDERED: DEXAMETHASONE SOD PHOS 10 MG/ML VIAL. IVP ONE (08:45)
[2022-02-02] MEDS ORDERED: ASPIRIN 325 MG TABLET PO ONE (09:15)
[2022-02-02 09:19] LABS: INFLUENZA A PATIENT NEGATIVE (NEGATIVE); INFLUENZA B PATIENT NEGATIVE (NEGATIVE)
[2022-02-02] MEDS ORDERED: ASPIRIN CHEWABLE 81 MG TABLET. PO ONE (09:30)
[2022-02-02 11:00] VITALS: BP 143/84
== END 2022-02-02 11:36 | disposition short-term general hospital (02) ==
LOC: ER 06:28
DX: I63.9 Cerebral infarction, unspecified (principal); J18.9 Pneumonia, unspecified organism; J44.9 Chronic obstructive pulmonary disease, unspecified; E78.00 Pure hypercholesterolemia, unspecified; I10 Essential (primary) hypertension; F17.210 Nicotine dependence, cigarettes, uncomplicated; F10.20 Alcohol dependence, uncomplicated; Z20.822 Contact with and (suspected) exposure to COVID-19; Y90.9 Presence of alcohol in blood, level not specified
CPT/HCPCS: 36415; 70450; 71045; 80053; 81001; 82550; 82803; 83735; 83880; 84100; 84484; 85025; 85379; 87428; 93005; 96365; 96375; 99285; C9803; J1100; J1956; U0003; 96366